=== PATIENT | male | born 1935 | race Caucasian/White ===

== ENCOUNTER 2018-03-12 09:41 | Emergency (ER) | payer MEDICARE ==
[~2018-03-12] VITALS: Ht 177.8 cm; Wt 90.0 kg
[2018-03-12 11:33] LABS: HEMATOCRIT 41.1 % (39.0-50.0); HEMOGLOBIN 13.8 g/dl (14.0-18.0); IMMATURE GRANULOCYTES 0.4 % (0.0-5.0); MEAN CELL VOLUME 93.6 fL CALC (80.0-100.0); MEAN CORPUSCULAR HGB 31.4 pG CALC (26.0-32.0); MEAN CORPUSCULAR HGB CONC 33.6 g/L CALC (32.0-36.0); NEUT# 5.07 thou/uL (1.82-7.42); RED BLOOD COUNT 4.39 mill/uL (4.70-6.10); RED CELL DISTRI WIDTH 12.7 % (11.5-15.5)
[2018-03-12] MEDS ORDERED: AMOXICILLIN500 MG PO (12:00)
[2018-03-12 12:01] LABS: ALBUMIN 4.4 g/dL (3.2-5.0); ALKALINE PHOSPHATASE 81 u/l (38-126); ANION GAP 15 (6-22 (CALC)); BILIRUBIN, TOTAL 0.9 mg/dL (0.0-1.4); BUN 26 mg/dL (8-23); BUN/CREATININE RATIO 22 (12-20 (CALC)); CARBON DIOXIDE 25 mmol/l (22-30); CHLORIDE 108 mmol/l (95-108); CREATININE 1.2 mg/dL (0.7-1.3); GFR 58 ML/MIN (>=60 (CALC)); GFR FOR AFR.AMER. > 60 ML/MIN (>=60 (CALC)); SGOT/AST 20 u/l (19-48); SODIUM 144 mmol/l (137-146)
[2018-03-12 12:25] VITALS: BP 131/65
== END 2018-03-12 12:25 | disposition home or self-care (01) ==
LOC: ED 09:41
PROVIDERS: Emergency Medicine
DX: L03.116 Cellulitis of left lower limb (principal); W22.8XXA Striking against or struck by other objects, initial encounter; Y93.9 Activity, unspecified; Y92.009 Unspecified place in unspecified non-institutional (private) residence as the place of occurrence of the external cause

== ENCOUNTER 2019-07-24 11:56 | Inpatient (IN) | payer MEDICARE ==
[~2019-07-24] VITALS: Ht 180.3 cm; Wt 86.2 kg
[~2019-07-24 11:56] MED LIST: AMOXICILLIN500 MG PO
[2019-07-24 12:50] LABS: HEMATOCRIT 40.2 % (39.0-50.0); HEMOGLOBIN 12.9 g/dl (14.0-18.0); IMMATURE GRANULOCYTES 0.4 % (0.0-5.0); MEAN CELL VOLUME 95.3 fL CALC (80.0-100.0); MEAN CORPUSCULAR HGB 30.6 pG CALC (26.0-32.0); MEAN CORPUSCULAR HGB CONC 32.1 g/L CALC (32.0-36.0); NEUT# 4.8 thou/uL (1.82-7.42); RED BLOOD COUNT 4.22 mill/uL (4.70-6.10); RED CELL DISTRI WIDTH 13.6 % (11.5-15.5)
[2019-07-24 13:33] LABS: TSH, 3RD GENERATION 2.65 uIU/mL (0.47 - 4.68)
[2019-07-24 13:50] LABS: ANION GAP 11 (6-22 (CALC)); BUN 19 mg/dL (8-23); BUN/CREATININE RATIO 20 (12-20 (CALC)); CARBON DIOXIDE 29 mmol/l (22-30); CHLORIDE 110 mmol/l (95-108); CREATININE 0.9 mg/dL (0.7-1.3); GFR > 60 ML/MIN (>=60 (CALC)); GFR FOR AFR.AMER. > 60 ML/MIN (>=60 (CALC)); POTASSIUM 4.1 mmol/l (3.5-5.1); SODIUM 145 mmol/l (137-146)
[2019-07-24] MEDS ORDERED: WARFARIN SODIUM5 MG PO (15:06)
[2019-07-24] MEDS ORDERED: ALPRAZOLAM0.5 M2 PO (15:06)
[2019-07-24] MEDS ORDERED: METOPROLOL SUCC50 MG PO (15:08)
[2019-07-24] MEDS ORDERED: ZOLPIDEM TARTRA10 MG PO (15:08)
[2019-07-24] MEDS ORDERED: LOSARTAN POTAS100 MG PO (15:12)
[2019-07-24] MEDS ORDERED: METOPROL TAR25 MG PO (15:13)
[2019-07-24] MEDS ORDERED: FUROSEMIDE20 MG PO (15:14)
[2019-07-24] MEDS ORDERED: ATORVASTATIN CA20 MG PO (15:15)
[2019-07-24] MEDS ORDERED: AMLOD/BENAZP1 CA3 PO (15:18)
[2019-07-24 16:30] VITALS: BP 123/76
[2019-07-24 18:56] VITALS: BP 129/76
[2019-07-25 00:21] VITALS: BP 124/78
[2019-07-25 04:20] VITALS: BP 108/65
[2019-07-25 06:47] LABS: ANION GAP 8 (6-22 (CALC)); BUN 17 mg/dL (8-23); BUN/CREATININE RATIO 19 (12-20 (CALC)); CARBON DIOXIDE 33 mmol/l (22-30); CHLORIDE 106 mmol/l (95-108); CREATININE 0.9 mg/dL (0.7-1.3); GFR > 60 ML/MIN (>=60 (CALC)); GFR FOR AFR.AMER. > 60 ML/MIN (>=60 (CALC)); MAGNESIUM 1.9 mg/dL (1.6-2.3); POTASSIUM 3.3 mmol/l (3.5-5.1); SODIUM 144 mmol/l (137-146)
[2019-07-25 09:10] VITALS: BP 97/57
[2019-07-25 11:00] VITALS: BP 122/74
[2019-07-25 15:35] VITALS: BP 134/79
[2019-07-25 19:20] VITALS: BP 127/67
[2019-07-26 00:03] VITALS: BP 136/64
[2019-07-26 03:48] VITALS: BP 121/72
[2019-07-26 05:25] LABS: HEMATOCRIT 39.7 % (39.0-50.0); IMMATURE GRANULOCYTES 0.4 % (0.0-5.0); MEAN CELL VOLUME 93.9 fL CALC (80.0-100.0); MEAN CORPUSCULAR HGB 30.7 pG CALC (26.0-32.0); MEAN CORPUSCULAR HGB CONC 32.7 g/L CALC (32.0-36.0); NEUT# 5.23 thou/uL (1.82-7.42); RED BLOOD COUNT 4.23 mill/uL (4.70-6.10); RED CELL DISTRI WIDTH 13.2 % (11.5-15.5)
[2019-07-26 05:52] LABS: ANION GAP 8 (6-22 (CALC)); BUN 22 mg/dL (8-23); BUN/CREATININE RATIO 21 (12-20 (CALC)); CARBON DIOXIDE 34 mmol/l (22-30); CHLORIDE 101 mmol/l (95-108); CREATININE 1.1 mg/dL (0.7-1.3); GFR > 60 ML/MIN (>=60 (CALC)); GFR FOR AFR.AMER. > 60 ML/MIN (>=60 (CALC)); POTASSIUM 3.3 mmol/l (3.5-5.1); SODIUM 140 mmol/l (137-146)
[2019-07-26 07:15] VITALS: BP 111/65
[2019-07-26 08:51] LABS: INTERNATIONAL NORMALIZED RATIO 2.6 RATIO (0.7-1.3); PROTHROMBIN TIME 25.7 SECONDS (9.0-12.5)
[2019-07-26 11:39] VITALS: BP 113/77
[2019-07-26] MEDS ORDERED: AMOX/K CLAV875 M1 PO (15:13)
[2019-07-26] MEDS ORDERED: LASIX 20 MG TAB20 MG PO (15:13)
[2019-07-26] MEDS ORDERED: POT CHLORIDE10 ME5 PO (15:23)
== END 2019-07-26 17:23 | disposition home or self-care (01) | DRG 292 ==
LOC: ED 11:56 → ED-I 14:24 → ED 14:47 → ED-I 14:48 → MS2 14:48
PROVIDERS: Family Medicine; Nurse Practitioner Family; ADMIT Internal Medicine; ATTEND Internal Medicine
DX: I11.0 Hypertensive heart disease with heart failure (principal); J96.10 Chronic respiratory failure, unspecified whether with hypoxia or hypercapnia; J44.1 Chronic obstructive pulmonary disease with (acute) exacerbation; I50.9 Heart failure, unspecified; E87.6 Hypokalemia; I25.10 Atherosclerotic heart disease of native coronary artery without angina pectoris; R79.1 Abnormal coagulation profile; T45.515A Adverse effect of anticoagulants, initial encounter; I25.2 Old myocardial infarction; Z95.1 Presence of aortocoronary bypass graft; Z95.5 Presence of coronary angioplasty implant and graft; Z99.81 Dependence on supplemental oxygen; Z87.891 Personal history of nicotine dependence

== ENCOUNTER 2020-12-29 11:11 | Observation (INO) | payer MEDICARE ==
[~2020-12-29] VITALS: Ht 180.3 cm; Wt 68.9 kg
[~2020-12-29 11:11] MED LIST changes: +ALPRAZOLAM0.5 M2 PO; +AMLOD/BENAZP1 CA3 PO; +AMOX/K CLAV875 M1 PO; +ATORVASTATIN CA20 MG PO; +FUROSEMIDE20 MG PO; +LASIX 20 MG TAB20 MG PO; +LOSARTAN POTAS100 MG PO; +METOPROL TAR25 MG PO; +METOPROLOL SUCC50 MG PO; +POT CHLORIDE10 ME5 PO; +WARFARIN SODIUM5 MG PO; +ZOLPIDEM TARTRA10 MG PO
--- NOTE | 2020-12-29 11:15 | NUR ---
TO ROOM VIA WHEELCHAIR, ACCOMPANIED BY .
[2020-12-29 12:13] LABS: HEMATOCRIT 45.4 % (39.0-50.0); HEMOGLOBIN 14.6 g/dl (14.0-18.0); IMMATURE GRANULOCYTES 0.1 % (0.0-5.0); MEAN CELL VOLUME 91.7 fL CALC (80.0-100.0); MEAN CORPUSCULAR HGB 29.5 pG CALC (26.0-32.0); MEAN CORPUSCULAR HGB CONC 32.2 g/dL CAL (32.0-36.0); NEUT# 4.76 thou/uL (1.82-7.42); RED BLOOD COUNT 4.95 mill/uL (4.70-6.10); RED CELL DISTRI WIDTH 15.7 % (11.5-15.5)
[2020-12-29 12:41] LABS: ALBUMIN 3.9 g/dL (3.2-5.0); ALKALINE PHOSPHATASE 81 u/l (38-126); ANION GAP 11 (6-22 (CALC)); BUN 18 mg/dL (8-23); BUN/CREATININE RATIO 20 (12-20 (CALC)); CARBON DIOXIDE 29 mmol/l (22-30); CHLORIDE 103 mmol/l (95-108); CREATININE 0.9 mg/dL (0.7-1.3); GFR > 60 ML/MIN (>=60 (CALC)); GFR FOR AFR.AMER. > 60 ML/MIN (>=60 (CALC)); POTASSIUM 3.1 mmol/l (3.5-5.1); SGOT/AST 20 u/l (19-48); SODIUM 140 mmol/l (137-146)
[2020-12-29 12:47] LABS: BILIRUBIN, TOTAL 1.6 mg/dL (0.0-1.4)
--- NOTE | 2020-12-29 13:20 | NUR ---
PATEINT RESTING, SPOUSE AT BEDSIDE, NO DISTRESS. AWAITING RESULTS.
[2020-12-29 13:51] LABS: INTERNATIONAL NORMALIZED RATIO 1.2 RATIO (0.7-1.3); PROTHROMBIN TIME 12.6 SECONDS (9.0-12.5)
--- NOTE | 2020-12-29 14:10 | NUR ---
UNABLE TO RECONCILE MEDS, PATIENT DOES NOT KNOW HOME MEDS.
[2020-12-29] MEDS ORDERED: FUROSEMIDE20 MG PO (14:59)
[2020-12-29] MEDS ORDERED: POTASSIUM CHLO10 MEQ PO (15:00)
[2020-12-29] MEDS ORDERED: SERTRALINE25 MG PO (15:00)
--- NOTE | 2020-12-29 15:00 | NUR ---
PATIENT RESTING, EYES CLOSED, NO DISTRESS.
[2020-12-29] MEDS ORDERED: CYANOCOBAL1000 MCG/M IM (15:02)
[2020-12-29] MEDS ORDERED: TRELEGY ELLIPTA1 AER PO (15:03)
[2020-12-29] MEDS ORDERED: ZOLPIDEM10 MG PO (15:04)
[2020-12-29] MEDS ORDERED: XANAX0.5 MG PO (15:04)
[2020-12-29] MEDS ORDERED: GABAPENTIN100 MG PO (15:05)
--- NOTE | 2020-12-29 16:00 | NUR ---
PATIENT RESTING, Reassessment of patient completed. No distress noted.
--- NOTE | 2020-12-29 17:03 | NUR ---
PATIENT UP TO BEDSIDE TO URINATE, NO DISTRESS. DENIES NEEDS.
--- NOTE | 2020-12-29 17:21 | NUR ---
REPORT CALLED TO ROBERT. AWAITING MED ORDER FROM GUY TERRY FOR BP THEN PATIENT WILL GO UPSTAIRS.
--- NOTE | 2020-12-29 17:21 | NUR ---
RECIEVED REPORT FROM JOSE VANEGAS
--- NOTE | 2020-12-29 17:51 | NUR ---
MED OBTAINED AT THIS TIME.
[2020-12-29 18:14] VITALS: BP 181/97
--- NOTE | 2020-12-29 18:42 | NUR ---
PT ARRIVED TO [facility] ROOM 260 VIA WHEELCHAIR. PT IS A/O X3. ASSESSMENT AND VITALS COMPLETED. RESPIRATIONS ARE EVEN AND UNLABOED WITH NO DISTRESS NHOTED. LUNG SOUNDS ARE CLEAR. HEART RHYTHM IREGULAR WITH TELE IN PLACE, AFIB PER ER MONITORING. BOWEL SOUNDS ARE ACTIVE. LBM 12/29/20. PEDAL PULSES WEAK. #20G RAC INFUSING WITH IVF PER ORDER, SITE REMAINS HEALTHY AND PATENT. SKIN INTACT. NKDA NOTD, ALLERGY BAND AND FALL RISK BAND APPLIED. PT DENIES OF ANY PAINS OR DISCOMFORTS AT THIS TIME. PT ORIENTED TO ROOM AND CALL SYSTEM. ALL SAFTEY PRECAUTIONS ARE IN PLACE WITH CALL LIGHT IN REACH. WILL CONTINUE TO MONITOR.
--- NOTE | 2020-12-29 20:00 | NUR ---
PHYSICAL ASSESMENT COMPLETE. PT CURRENTLY DENIES PAIN OR DISCOMFORT. SCHEDULED MEDICATIONS AND PRN MEDICATION ADMINISTERED, SEE E-MAR. PT DENIES ANY NEEDS AT THIS TIME. PLAN OF CARE REVIEWED, PT DENIES QUESTIONS, VERBALIZES UNDERSTANDING. ITEMS WITHIN REACH, BED LOCKED IN LOW POSITION W/ BEDRAILS UP X2. CALL DUPONT WITHIN REACH, AGREES TO CALL PRN.
--- NOTE | 2020-12-29 22:45 | NUR ---
PHYSICAL ASSESMENT COMPLETE. PT CURRENTLY DENIES PAIN OR DISCOMFORT. SCHEDULED MEDICATIONS AND PRN MEDICATION ADMINISTERED, SEE E-MAR. PT HAS SOB WITH EXERTION. PT HAS EVEN AND UNLABORED RESPIRATION ON 3 LITERS OF OXYGEN. PT DENIES ANY NEEDS AT THIS TIME. PLAN OF CARE REVIEWED, PT DENIES QUESTIONS, VERBALIZES UNDERSTANDING. ITEMS WITHIN REACH, BED LOCKED IN LOW POSITION W/ BEDRAILS UP X2. CALL DUPONT WITHIN REACH, AGREES TO CALL PRN.
[2020-12-30] VITALS: BP 154/87
--- NOTE | 2020-12-30 | NUR ---
PT LAYING IN BED WITH EYES CLOSED, APPEARS TO BE SLEEPING, APPEARS COMFORTABLE AND IN NO DISTRESS. RESPIRATIONS REGULAR AND UNLABORED. ITEMS REMAIN WITHIN REACH, CALL DUPONT REMAINS WITHIN REACH. BED REMAINS LOCKED AND IN LOW POSITION WITH BEDRAILS UP X2. WILL CONTINUE TO MONITOR.
--- NOTE | 2020-12-30 04:55 | NUR ---
GAVE PT APRESOLINE FOR A BP OF 175/102. FIRST DOSE WAS DROPPED ON THE FLOOR. WILL RECHECK BP AND MONITOR CLOSELY.
[2020-12-30 05:10] VITALS: BP 175/102
[2020-12-30 06:28] LABS: HEMATOCRIT 47.2 % (39.0-50.0); HEMOGLOBIN 15.3 g/dl (14.0-18.0); MEAN CELL VOLUME 90.9 fL CALC (80.0-100.0); MEAN CORPUSCULAR HGB 29.5 pG CALC (26.0-32.0); MEAN CORPUSCULAR HGB CONC 32.4 g/dL CAL (32.0-36.0); RED BLOOD COUNT 5.19 mill/uL (4.70-6.10); RED CELL DISTRI WIDTH 15.8 % (11.5-15.5)
[2020-12-30 06:42] LABS: BUN 13 mg/dL (8-23); BUN/CREATININE RATIO 17 (12-20 (CALC)); CALCULATED LDLCHOLESTEROL 33 mg/dL (62-129 (CALC)); CHLORIDE 107 mmol/l (95-108); CHOLESTEROL HDL RATIO 2.1 (<4.4 (CALC)); CREATININE 0.8 mg/dL (0.7-1.3); GFR > 60 ML/MIN (>=60 (CALC)); GFR FOR AFR.AMER. > 60 ML/MIN (>=60 (CALC)); HDL CHOLESTEROL 51 mg/dL (>=40); MAGNESIUM 1.8 mg/dL (1.6-2.3); POTASSIUM 3.4 mmol/l (3.5-5.1); SODIUM 139 mmol/l (137-146); TOTAL CHOLESTEROL 108 mg/dl (0-199); TOTAL TRIGLYCERIDES 116 mg/dl (30-149); VLDL CHOLESTROL 23 mg/dl (0-38 (CALC))
[2020-12-30 06:46] LABS: ANION GAP 12 (6-22 (CALC)); CARBON DIOXIDE 23 mmol/l (22-30)
[2020-12-30 07:30] VITALS: BP 147/73
--- NOTE | 2020-12-30 07:30 | NUR ---
PT IN BED. ASSESSMENT AND VITALS DONE. HEART SOUNDS HEARD.BOWEL SOUNDS ACTIVE IN ALL 4 QUADRANTS. SKIN WARM AND DRY. PEDAL PULSES BILATERALLY STRONG. IV PATENT AND HEALTHY. NO PAIN REPORTED BY PT AT THIS TIME. CALL LIGHT WITHIN REACH.
[2020-12-30] MEDS ORDERED: NORVASC5 M1 PO (08:29)
[2020-12-30] MEDS ORDERED: LIPITOR20 M1 PO (08:30)
[2020-12-30] MEDS ORDERED: KAPSPARGO SPRIN25 MG PO (08:30)
[2020-12-30] MEDS ORDERED: WARFARIN5 MG PO (08:42)
[2020-12-30] MEDS ORDERED: ASPIRIN 81 LOW81 MG PO (08:44)
[2020-12-30 09:35] LABS: INTERNATIONAL NORMALIZED RATIO 1.2 RATIO (0.7-1.3); PROTHROMBIN TIME 12.6 SECONDS (9.0-12.5)
--- NOTE | 2020-12-30 09:39 | NUR ---
MESSAGE LEFT FOR NEXT OF KIN AMAYA TREJO TO CALL BACK IN REFERENCE TO [facility]
--- NOTE | 2020-12-30 12:00 | NUR ---
PT IN BED. NO DISTRESS NOTED. CALL LIGHT WITHIN REACH.
--- NOTE | 2020-12-30 12:17 | NUR ---
SPOKE WITH FRIEND LESA EPSTEIN. SHE WILL BE HERE AT 9PM TO PICK HIM UP.
[2020-12-30 14:50] VITALS: BP 154/91
--- NOTE | 2020-12-30 16:00 | NUR ---
PT IN BED RESTING, AWAITING TO COME GET HIM AT 9PM FOR DISCHARGE. NO PAIN REPORTED. CALL LIGHT WITHIN REACH.
[2020-12-30 18:51] VITALS: BP 151/77
--- NOTE | 2020-12-30 20:23 | NUR ---
PHYSICAL ASSESMENT COMPLETE. PT CURRENTLY DENIES PAIN OR DISCOMFORT. PT IS TO BE DISCHARGED AT 2100 AND IS REFUSIMG HIS NIGHT MEDICATION. PT STATES HE WILL TAKE THEM AT HOME. PT DENIES ANY NEEDS AT THIS TIME. PLAN OF CARE REVIEWED, PT DENIES QUESTIONS, VERBALIZES UNDERSTANDING. ITEMS WITHIN REACH, BED LOCKED IN LOW POSITION W/ BEDRAILS UP X2. CALL DUPONT WITHIN REACH, AGREES TO CALL PRN.
--- NOTE | 2020-12-30 21:10 | NUR ---
Discharge instructions given. Patient verbalizes understanding of same. Discharged in stable condition via Wheelchair to Home with *Other. All belongings sent with pt.
== END 2020-12-30 21:10 | disposition home or self-care (01) ==
LOC: ED 11:11 → ED-I 14:10 → ED 14:35 → MS2 14:36
PROVIDERS: Family Medicine; Nurse Practitioner; ADMIT Internal Medicine; ATTEND Internal Medicine
DX: R00.1 Bradycardia, unspecified (principal); T44.7X5A Adverse effect of beta-adrenoreceptor antagonists, initial encounter; E87.6 Hypokalemia; I11.0 Hypertensive heart disease with heart failure; I50.9 Heart failure, unspecified; I25.10 Atherosclerotic heart disease of native coronary artery without angina pectoris; I48.91 Unspecified atrial fibrillation; I49.3 Ventricular premature depolarization; J44.9 Chronic obstructive pulmonary disease, unspecified; I25.2 Old myocardial infarction; R79.1 Abnormal coagulation profile; Z95.1 Presence of aortocoronary bypass graft; Z99.81 Dependence on supplemental oxygen; Z79.01 Long term (current) use of anticoagulants; Z87.891 Personal history of nicotine dependence; Z95.5 Presence of coronary angioplasty implant and graft; Z20.822 Contact with and (suspected) exposure to COVID-19
CPT/HCPCS: G0378; J1650

== ENCOUNTER 2021-05-16 12:53 | Observation (INO) | payer MEDICARE ==
[~2021-05-16] VITALS: Ht 180.3 cm; Wt 77.8 kg
[~2021-05-16 12:53] MED LIST changes: +ASPIRIN 81 LOW81 MG PO; +CYANOCOBAL1000 MCG/M IM; +GABAPENTIN100 MG PO; +KAPSPARGO SPRIN25 MG PO; +LIPITOR20 M1 PO; +NORVASC5 M1 PO; +POTASSIUM CHLO10 MEQ PO; +SERTRALINE25 MG PO; +TRELEGY ELLIPTA1 AER PO; +WARFARIN5 MG PO; +XANAX0.5 MG PO; +ZOLPIDEM10 MG PO
[2021-05-16 14:34] LABS: HEMATOCRIT 47.1 % (39.0-50.0); HEMOGLOBIN 15.3 g/dl (14.0-18.0); IMMATURE GRANULOCYTES 0.1 % (0.0-5.0); MEAN CORPUSCULAR HGB 30.8 pG CALC (26.0-32.0); MEAN CORPUSCULAR HGB CONC 32.5 g/dL CAL (32.0-36.0); NEUT# 6.46 thou/uL (1.82-7.42); RED BLOOD COUNT 4.96 mill/uL (4.70-6.10); RED CELL DISTRI WIDTH 15.1 % (11.5-15.5)
[2021-05-16 14:47] LABS: ALBUMIN 3.8 g/dL (3.2-5.0); ALKALINE PHOSPHATASE 108 u/l (38-126); ANION GAP 11 (6-22 (CALC)); BILIRUBIN, TOTAL 1.4 mg/dL (0.0-1.4); CARBON DIOXIDE 26 mmol/l (22-30); CHLORIDE 107 mmol/l (95-108); CREATININE 1.3 mg/dL (0.7-1.3); GFR 52 ML/MIN (>=60 (CALC)); GFR FOR AFR.AMER. > 60 ML/MIN (>=60 (CALC)); POTASSIUM 3.5 mmol/l (3.5-5.1); SODIUM 141 mmol/l (137-146); TOTAL PROTEIN 6.3 g/dL (6.3-8.2)
[2021-05-16 14:50] LABS: BUN 39 mg/dL (8-23); BUN/CREATININE RATIO 30 (12-20 (CALC)); SGOT/AST 41 u/l (19-48)
[2021-05-16 16:04] LABS: URINE BILIRUBIN - DIPSTICK NEGATIVE (NEGATIVE); URINE BLOOD DIPSTICK SMALL (NEGATIVE); URINE COLOR YELLOW; URINE GLUCOSE - DIPSTICK NEGATIVE (NEGATIVE); URINE KETONE NEGATIVE (NEGATIVE); URINE LEUK ESTERASE NEGATIVE (NEGATIVE); URINE PROTEIN - DIPSTICK 100 mg/dL (NEG-TRACE); URINE SPECIFIC GRAVITY >=1.030; URINE UROBILINOGEN - DIPSTICK 0.2 E.U./dL (0.2)
[2021-05-16 16:07] LABS: URINE NITRITE - DIPSTICK NEGATIVE (Negative)
[2021-05-16 16:32] LABS: INTERNATIONAL NORMALIZED RATIO 5.5 RATIO (0.7-1.3); PROTHROMBIN TIME 51.8 SECONDS (9.0-12.5)
[2021-05-16 18:00] VITALS: BP 163/99
[2021-05-16 19:00] VITALS: BP 152/102
[2021-05-16 21:30] VITALS: BP 127/76
[2021-05-17] VITALS (9 sets, daily range): BP systolic 124–172; BP diastolic 75–98
[2021-05-17 05:38] LABS: HEMATOCRIT 42.9 % (39.0-50.0); HEMOGLOBIN 14.3 g/dl (14.0-18.0); MEAN CELL VOLUME 92.9 fL CALC (80.0-100.0); MEAN CORPUSCULAR HGB CONC 33.3 g/dL CAL (32.0-36.0); RED BLOOD COUNT 4.62 mill/uL (4.70-6.10); RED CELL DISTRI WIDTH 15.2 % (11.5-15.5)
[2021-05-17 06:14] LABS: ANION GAP 12 (6-22 (CALC)); BUN 37 mg/dL (8-23); BUN/CREATININE RATIO 32 (12-20 (CALC)); CALCULATED LDLCHOLESTEROL 39 mg/dL (62-129 (CALC)); CARBON DIOXIDE 24 mmol/l (22-30); CHLORIDE 109 mmol/l (95-108); CHOLESTEROL HDL RATIO 2.1 (<4.4 (CALC)); CREATININE 1.2 mg/dL (0.7-1.3); GFR 57 ML/MIN (>=60 (CALC)); GFR FOR AFR.AMER. > 60 ML/MIN (>=60 (CALC)); HDL CHOLESTEROL 52 mg/dL (>=40); MAGNESIUM 1.8 mg/dL (1.6-2.3); POTASSIUM 3.4 mmol/l (3.5-5.1); SODIUM 142 mmol/l (137-146); TOTAL CHOLESTEROL 107 mg/dl (0-199); TOTAL TRIGLYCERIDES 80 mg/dl (30-149); VLDL CHOLESTROL 16 mg/dl (0-38 (CALC))
[2021-05-17 06:36] LABS: PROTHROMBIN TIME 56.3 SECONDS (9.0-12.5)
[2021-05-18 00:07] VITALS: BP 148/91
[2021-05-18 04:28] VITALS: BP 138/86
[2021-05-18 05:24] LABS: HEMATOCRIT 43.9 % (39.0-50.0); HEMOGLOBIN 14.2 g/dl (14.0-18.0); MEAN CELL VOLUME 96.3 fL CALC (80.0-100.0); MEAN CORPUSCULAR HGB 31.1 pG CALC (26.0-32.0); MEAN CORPUSCULAR HGB CONC 32.3 g/dL CAL (32.0-36.0); RED BLOOD COUNT 4.56 mill/uL (4.70-6.10); RED CELL DISTRI WIDTH 15.3 % (11.5-15.5)
[2021-05-18 05:54] LABS: ANION GAP 7 (6-22 (CALC)); BUN 35 mg/dL (8-23); BUN/CREATININE RATIO 30 (12-20 (CALC)); CHLORIDE 107 mmol/l (95-108); CREATININE 1.2 mg/dL (0.7-1.3); GFR 57 ML/MIN (>=60 (CALC)); GFR FOR AFR.AMER. > 60 ML/MIN (>=60 (CALC)); MAGNESIUM 2.2 mg/dL (1.6-2.3); POTASSIUM 3.3 mmol/l (3.5-5.1); SODIUM 142 mmol/l (137-146)
[2021-05-18 05:59] LABS: CARBON DIOXIDE 31 mmol/l (22-30)
[2021-05-18 06:19] LABS: INTERNATIONAL NORMALIZED RATIO 3.8 RATIO (0.7-1.3); PROTHROMBIN TIME 36.3 SECONDS (9.0-12.5)
[2021-05-18 08:00] VITALS: BP 125/75
[2021-05-18 11:00] VITALS: BP 160/78
[2021-05-18 14:55] VITALS: BP 176/95
[2021-05-18 19:00] VITALS: BP 140/76
[2021-05-19] VITALS: BP 140/69
[2021-05-19 04:00] VITALS: BP 140/70
[2021-05-19 05:27] LABS: HEMATOCRIT 46.6 % (39.0-50.0); HEMOGLOBIN 15.2 g/dl (14.0-18.0); MEAN CELL VOLUME 96.7 fL CALC (80.0-100.0); MEAN CORPUSCULAR HGB 31.5 pG CALC (26.0-32.0); MEAN CORPUSCULAR HGB CONC 32.6 g/dL CAL (32.0-36.0); RED BLOOD COUNT 4.82 mill/uL (4.70-6.10); RED CELL DISTRI WIDTH 15.6 % (11.5-15.5)
[2021-05-19 05:30] LABS: ANION GAP 9 (6-22 (CALC)); BUN 32 mg/dL (8-23); BUN/CREATININE RATIO 30 (12-20 (CALC)); CARBON DIOXIDE 29 mmol/l (22-30); CHLORIDE 109 mmol/l (95-108); CREATININE 1.1 mg/dL (0.7-1.3); GFR > 60 ML/MIN (>=60 (CALC)); GFR FOR AFR.AMER. > 60 ML/MIN (>=60 (CALC)); MAGNESIUM 2.1 mg/dL (1.6-2.3); SODIUM 143 mmol/l (137-146)
[2021-05-19 05:43] LABS: INTERNATIONAL NORMALIZED RATIO 2.3 RATIO (0.7-1.3); POTASSIUM 4.1 mmol/l (3.5-5.1); PROTHROMBIN TIME 22.9 SECONDS (9.0-12.5)
[2021-05-19 08:30] VITALS: BP 155/90
[2021-05-19] MEDS ORDERED: XANAX0.5 MG PO (08:57)
== END 2021-05-19 10:23 | disposition home health service (06) ==
LOC: ED 12:53 → ED-I 15:13 → ED 15:58 → MS2 15:59
PROVIDERS: Family Medicine; Internal Medicine; Nurse Practitioner; ADMIT Internal Medicine; ATTEND Internal Medicine
DX: I11.0 Hypertensive heart disease with heart failure (principal); I50.9 Heart failure, unspecified; N17.9 Acute kidney failure, unspecified; E87.6 Hypokalemia; R79.1 Abnormal coagulation profile; T45.515A Adverse effect of anticoagulants, initial encounter; I25.10 Atherosclerotic heart disease of native coronary artery without angina pectoris; J44.9 Chronic obstructive pulmonary disease, unspecified; E78.5 Hyperlipidemia, unspecified; G62.9 Polyneuropathy, unspecified; F41.9 Anxiety disorder, unspecified; F32.A Depression, unspecified; R00.1 Bradycardia, unspecified; I25.2 Old myocardial infarction; Z95.1 Presence of aortocoronary bypass graft; Z91.81 History of falling; Z79.01 Long term (current) use of anticoagulants; Z87.891 Personal history of nicotine dependence; Z95.5 Presence of coronary angioplasty implant and graft; Z20.822 Contact with and (suspected) exposure to COVID-19

== ENCOUNTER 2021-06-01 13:14 | Emergency (ER) | payer OTHER, MEDICARE ==
[~2021-06-01] VITALS: Ht 180.3 cm; Wt 78.0 kg
[2021-06-01 14:42] LABS: HEMATOCRIT 46.3 % (39.0-50.0); HEMOGLOBIN 14.9 g/dl (14.0-18.0); IMMATURE GRANULOCYTES 0.1 % (0.0-5.0); MEAN CELL VOLUME 97.9 fL CALC (80.0-100.0); MEAN CORPUSCULAR HGB 31.5 pG CALC (26.0-32.0); MEAN CORPUSCULAR HGB CONC 32.2 g/dL CAL (32.0-36.0); NEUT# 4.55 thou/uL (1.82-7.42); RED BLOOD COUNT 4.73 mill/uL (4.70-6.10); RED CELL DISTRI WIDTH 15.4 % (11.5-15.5)
[2021-06-01 14:45] LABS: ALBUMIN 3.9 g/dL (3.2-5.0); BILIRUBIN, TOTAL 1.3 mg/dL (0.0-1.4); CREATININE 1.4 mg/dL (0.7-1.3); POTASSIUM 3.6 mmol/l (3.5-5.1); TOTAL PROTEIN 6.5 g/dL (6.3-8.2)
[2021-06-01 15:06] LABS: INTERNATIONAL NORMALIZED RATIO 3.4 RATIO (0.7-1.3); PROTHROMBIN TIME 32.5 SECONDS (9.0-12.5)
[2021-06-01] MEDS ORDERED: MEDDOSEPAK PO (18:37)
[2021-06-01] MEDS ORDERED: ZPAK PO (19:45)
[2021-06-01 20:31] VITALS: BP 177/100
== END 2021-06-01 20:35 | disposition home or self-care (01) | DRG 192 ==
LOC: ED 13:14
PROVIDERS: Emergency Medicine
DX: J44.1 Chronic obstructive pulmonary disease with (acute) exacerbation (principal); R60.0 Localized edema; I11.0 Hypertensive heart disease with heart failure; I50.9 Heart failure, unspecified; I25.10 Atherosclerotic heart disease of native coronary artery without angina pectoris; I25.2 Old myocardial infarction; Z95.5 Presence of coronary angioplasty implant and graft; Z95.1 Presence of aortocoronary bypass graft; Z20.822 Contact with and (suspected) exposure to COVID-19

== ENCOUNTER 2021-07-05 14:34 | Observation (INO) | payer MEDICARE ==
[~2021-07-05] VITALS: Ht 180.3 cm; Wt 66.0 kg
[~2021-07-05 14:34] MED LIST changes: +MEDDOSEPAK PO; -SERTRALINE25 MG PO; +SERTRALINE50 MG PO; +ZPAK PO
--- NOTE | 2021-07-05 15:01 | NUR ---
PT AMBLATORY TO ROOM, REFUSED A W/C. DENIES ANY COMPLAINTS AT THIS TIME
[2021-07-05 15:12] LABS: HEMATOCRIT 45.4 % (39.0-50.0); HEMOGLOBIN 14.6 g/dl (14.0-18.0); IMMATURE GRANULOCYTES 0.1 % (0.0-5.0); MEAN CELL VOLUME 96.6 fL CALC (80.0-100.0); MEAN CORPUSCULAR HGB 31.1 pG CALC (26.0-32.0); MEAN CORPUSCULAR HGB CONC 32.2 g/dL CAL (32.0-36.0); NEUT# 5.75 thou/uL (1.82-7.42); RED BLOOD COUNT 4.7 mill/uL (4.70-6.10); RED CELL DISTRI WIDTH 15.4 % (11.5-15.5)
[2021-07-05 15:31] LABS: ALBUMIN 3.9 g/dL (3.2-5.0); ALKALINE PHOSPHATASE 119 u/l (38-126); ANION GAP 13 (6-22 (CALC)); BILIRUBIN, TOTAL 1.1 mg/dL (0.0-1.4); BUN 25 mg/dL (8-23); BUN/CREATININE RATIO 21 (12-20 (CALC)); CARBON DIOXIDE 29 mmol/l (22-30); CHLORIDE 102 mmol/l (95-108); CREATININE 1.2 mg/dL (0.7-1.3); GFR 57 ML/MIN (>=60 (CALC)); GFR FOR AFR.AMER. > 60 ML/MIN (>=60 (CALC)); POTASSIUM 3.4 mmol/l (3.5-5.1); SGOT/AST 31 u/l (19-48); SODIUM 140 mmol/l (137-146); TOTAL PROTEIN 6.5 g/dL (6.3-8.2)
[2021-07-05 15:50] LABS: PROTHROMBIN TIME 158.9 SECONDS (9.0-12.5)
[2021-07-05 15:51] LABS: INTERNATIONAL NORMALIZED RATIO 18.3 RATIO (0.7-1.3)
[2021-07-05 16:00] VITALS: BP 162/89
[2021-07-05 16:31] VITALS: BP 160/86
--- NOTE | 2021-07-05 16:36 | NUR ---
MD AT BEDSIDE TO DISCUSS RESULTS AND POC
[2021-07-05 17:14] VITALS: BP 147/78
[2021-07-05 17:45] VITALS: BP 146/77
--- NOTE | 2021-07-05 17:50 | NUR ---
UNABLE TO OBTAIN MED REC, PT CAN NOT REMEMBER MEDS OR DOSAGES, PLACED PHARMACY CONSULT AND ADVISED NURSE TAKING CARE OF PT OF REASON WHY.
[2021-07-05 18:01] VITALS: BP 155/131
[2021-07-05 18:31] VITALS: BP 128/69
--- NOTE | 2021-07-05 18:48 | NUR ---
SITTING IN HIGH FOWLERS, RESPS EVEN AND UNLABORED ON ROOM AIR. DENIES NEEDS AT THIS TIME.
--- NOTE | 2021-07-05 19:14 | NUR ---
REPORT RECEIVED FROM Edna FRANCOIS RN
--- NOTE | 2021-07-05 19:15 | NUR ---
REPORT CALLED TO ANGEL GARCIA
--- NOTE | 2021-07-05 19:20 | NUR ---
TO MED SURG VIA WHEELCHAIR, TELE MONITOR IN PLACE.
--- NOTE | 2021-07-05 19:24 | NUR ---
PT ARROVED ON FLOOR VIA STRETCHER ACCOMPANIED BY ER STAFF
--- NOTE | 2021-07-05 20:33 | NUR ---
DRESSING TO BACK OF LEFT FOREARM CHANGED AT THIS TIME. NO ADHERED DRESSING APPLIED, ABD PAD FOR COMFORT AND KERLIX WRAPPED SECURRED WITH TAPE. PT TOLERATED WELL.
[2021-07-06] VITALS (27 sets, daily range): BP systolic 73–175; BP diastolic 49–84
--- NOTE | 2021-07-06 01:56 | NUR ---
PT MEDICATED FOR HEAD ACHE, PUPILS CHECKED, NO S/S OF BLEEDING OTHER THAN PRESENT OPEN CUT. DRESSING CHANGED, ABD PAD SOAKED IN ITS ENTIRETY WITH BLOOD. REPLACED WITH NON ADHERENT, ABD PAD, KERLIX WRAPPER AND HOWARD BANADAGE APPLIED FOR PRESSURE. PT DOES NOT WANT HOWARD BANDAGE ON.
--- NOTE | 2021-07-06 02:20 | NUR ---
CALL TO DR REGARDING PERSISTENT HEADACHE. MD ORDERS FOLLOWS ULTRAM PO 50MG EVERY 6 HOURS PRN. WOUND COSULT TO FOLLOW PT/INR CAN BE DRAWN NOW.
[2021-07-06 03:03] LABS: INTERNATIONAL NORMALIZED RATIO 8.7 RATIO (0.7-1.3)
--- NOTE | 2021-07-06 03:33 | NUR ---
ULTRAM ORDER PROFILED BY PHARMACY, PT SLEEPING, WRITTER HOLDING MEDICATION UNTIL PT IS AWAKE.
[2021-07-06 05:38] LABS: HEMATOCRIT 40.3 % (39.0-50.0); HEMOGLOBIN 13.3 g/dl (14.0-18.0); MEAN CELL VOLUME 95.3 fL CALC (80.0-100.0); MEAN CORPUSCULAR HGB 31.4 pG CALC (26.0-32.0); RED BLOOD COUNT 4.23 mill/uL (4.70-6.10); RED CELL DISTRI WIDTH 15.3 % (11.5-15.5)
[2021-07-06 05:51] LABS: ANION GAP 12 (6-22 (CALC)); BUN 23 mg/dL (8-23); BUN/CREATININE RATIO 22 (12-20 (CALC)); CARBON DIOXIDE 26 mmol/l (22-30); CHLORIDE 104 mmol/l (95-108); GFR > 60 ML/MIN (>=60 (CALC)); GFR FOR AFR.AMER. > 60 ML/MIN (>=60 (CALC)); SODIUM 139 mmol/l (137-146)
[2021-07-06 05:58] LABS: PROTHROMBIN TIME 64.4 SECONDS (9.0-12.5)
--- NOTE | 2021-07-06 08:00 | NUR ---
PT AWAKE UPON ENTERING ROOM. ASSESSMENT AND VITALS ALLOWED AT THIS TIME. PT STATES HEADACHE. LEFT ARM DRESSING IS CDI. IV RAC 20G FLUSHED WITH NO RESISTANCE. TELE MONITOR IN PLACE, CONTINOUS MONITORING BY ED. FALL/SAFTEY PRECAUTION IN PLACE. CALL LIGHT WITHIN REACH.
--- NOTE | 2021-07-06 09:22 | NUR ---
DRESSING CHANGED PERFORMED AT THIS TIME. CUT STILL HAS SLIGHT BLEEDING WRAPPED WITH NON ADHERENT PAD/ ABD PAD. KIRLEX AND COBAN. PT TOLERATED WELL.
--- NOTE | 2021-07-06 10:00 | NUR ---
PT STATES HAVING HEADACHE "FEELS LIKE MY HEAD WILL BLOW OFF". DARIN MCELROY NOTIFIED.
[2021-07-06] MEDS ORDERED: BUMETANIDE1 MG PO (10:11)
[2021-07-06] MEDS ORDERED: TOPROL XL25 M1 PO (10:15)
[2021-07-06] MEDS ORDERED: COZAAR100 MG PO (10:15)
[2021-07-06] MEDS ORDERED: METOLAZONE2.5 MG PO (10:16)
[2021-07-06] MEDS ORDERED: PROAIR HFA108 MCG/AC IN (10:21)
[2021-07-06] MEDS ORDERED: FLONASE AL50 MCG/ACT (10:26)
--- NOTE | 2021-07-06 11:52 | NUR ---
PT TRANSPORTED TO CT WITH [employer] [facility] AT THIS TIME VIA WC.
--- NOTE | 2021-07-06 12:04 | NUR ---
PT RETURNED VIA WC WITH TYSON MIDDLETON AT THIS TIME.
--- NOTE | 2021-07-06 12:20 | NUR ---
PT TRANSFERRED TO ICU VIA STRETCHER WITH TYSON FINK AND JOSE HOUGH ([employer]ICA[employer] BILLER). PT HAVING FLAT AFFECT. BUT IS ABLE TO TELL ME PPT, . VITALS OBTAINED RR:18, SPO2: 92 RA, HR: 78, BP:165/81, TEMP: 97.4.
--- NOTE | 2021-07-06 13:58 | NUR ---
FLPSS TRANSFUSING PT TOLERATING WELL. REMAINS A 1 ON NIH SCALE.
--- NOTE | 2021-07-06 14:13 | NUR ---
1230 SPOKE WITH HARRISON WEBSTER. CONCERNS FOR S/S OF POSSIBLE BLEED IN BRAIN. IMAGES VIEWED BY MD AND NOTICED BLEED. TRANSFER FROM IA TO ICU INITIATED. PATINETS SYSTOLIC BP 165. ORDERS RECIEVED FOR TISHA HSU FFP'S RECIEVED. PATIENTS CURRENT NIHSS IS A 1 FOR LEFT FACIAL DROOP. GL[place]OW COMA OF 12. PATIENT ALERT AND ORIENTED TIMES 3. NO FOCAL NEURO DEFICITS NOTED AT THIS TIME. [address] GUZMAN IN SCREEN. MD NOTED POSSIBLE CONCERN FOR SUBARACHNOID ON LEFT SIDE. DR GUZMAN TO CALL [facility] TO ASSIST WITH TRANSFER. NIHSS WITH MD OF A 1. NO FOCAL NEURO DEFICITS NOTED JUST LEFT FACIAL DROOP. 1300 TISHA ANAYA PAUSED 1409 FFP STARTED
--- NOTE | 2021-07-06 17:31 | NUR ---
1548 WITNESSED CODE AGIONAL BREATHING RHYTHM PEA. CPR STARTED 1550 ROSC 1552 PATIENT DECORTICATE POSTURING WITH RIGHT GAZE DEVIATION NOED 1601 DR DC AT BEDSIDE RSI IN PROGRESS 1603 PATIENT INTUBATED 7.5 MACANESE AND 22 AT THE LIP PLACEMENT CONFIRMED WITH CO2 DETECTOR, ASULCATION AND BILATERAL AND EQUAL CHEST RISE AND FALL 1604 16FR ORAL GASTRIC TUBE PLACED CONFIRMED BY ASULCATION 1605 16 MACANESE BLAS PLACED USIG STERILE TECHNIQUE 1618 TRIPLE LUMEN CENTRAL LINE PLACED BY DR DC IN [facility] 1619 PORTABLE XRAY COMPLETED TO CONFIRM PLACEMENT OF ET TUBE, CENTRAL LINE AND OG TUBE 1650 LEVOPHED DRIP STARTED AT 8 MCG PER MINUTE 1720 [facility] CALLED GOING TO BED 4B05A AEROMED LAUNCHED ETA 30 MINUTES 1725 4 UNITS FFP STARTED
--- NOTE | 2021-07-06 18:05 | NUR ---
[facility] ARRIVED AND PATIENT BEING PREPARED FOR TRANSPORT TO [facility]
--- NOTE | 2021-07-06 18:10 | NUR ---
PATIENT DEPARTED TO [facility] VIA [facility]
== END 2021-07-06 18:14 | disposition short-term general hospital (02) ==
LOC: ED 14:34 → ED-I 16:44 → ED 16:58 → MS2 16:59 → ICU 16:59 → MS2 16:59 → ICU 07-06 12:30
PROVIDERS: Family Medicine; ADMIT Internal Medicine; ATTEND Internal Medicine
PROC: 30233K1 Transfusion of Nonautologous Frozen Plasma into Peripheral Vein, Percutaneous Approach (ICD-10-PCS; principal; 2021-07-06)
PROC: 30233K1 Transfusion of Nonautologous Frozen Plasma into Peripheral Vein, Percutaneous Approach (ICD-10-PCS; 2021-07-06)
PROC: 30233K1 Transfusion of Nonautologous Frozen Plasma into Peripheral Vein, Percutaneous Approach (ICD-10-PCS; 2021-07-06)
PROC: 30233K1 Transfusion of Nonautologous Frozen Plasma into Peripheral Vein, Percutaneous Approach (ICD-10-PCS; 2021-07-06)
PROC: 30233K1 Transfusion of Nonautologous Frozen Plasma into Peripheral Vein, Percutaneous Approach (ICD-10-PCS; 2021-07-06)
PROC: 02HV33Z Insertion of Infusion Device into Superior Vena Cava, Percutaneous Approach (ICD-10-PCS; 2021-07-06)
PROC: 0BH17EZ Insertion of Endotracheal Airway into Trachea, Via Natural or Artificial Opening (ICD-10-PCS; 2021-07-06)
PROC: 5A1935Z Respiratory Ventilation, Less than 24 Consecutive Hours (ICD-10-PCS; 2021-07-06)
PROC: 5A12012 Performance of Cardiac Output, Single, Manual (ICD-10-PCS; 2021-07-06)
DX: T45.511A Poisoning by anticoagulants, accidental (unintentional), initial encounter (principal); I62.00 Nontraumatic subdural hemorrhage, unspecified; I46.9 Cardiac arrest, cause unspecified; I11.0 Hypertensive heart disease with heart failure; I50.9 Heart failure, unspecified; E87.6 Hypokalemia; N17.9 Acute kidney failure, unspecified; I48.91 Unspecified atrial fibrillation; E78.5 Hyperlipidemia, unspecified; I25.10 Atherosclerotic heart disease of native coronary artery without angina pectoris; J43.9 Emphysema, unspecified; F41.9 Anxiety disorder, unspecified; F32.9 Major depressive disorder, single episode, unspecified; G62.9 Polyneuropathy, unspecified; I25.2 Old myocardial infarction; S51.812A Laceration without foreign body of left forearm, initial encounter; W19.XXXA Unspecified fall, initial encounter; Z87.891 Personal history of nicotine dependence; Z95.5 Presence of coronary angioplasty implant and graft; Z95.1 Presence of aortocoronary bypass graft; Z20.822 Contact with and (suspected) exposure to COVID-19